=== PATIENT | female | born 1950 | race Caucasian/White ===

== ENCOUNTER 2019-03-17 09:31 | Emergency (ER) | payer OTHER, MEDICARE ==
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
[2019-03-17 10:00] LABS: CHLORIDE,CL 108 mEq/L (98-106); SODIUM,NA 144 mEq/L (136-145)
[2019-03-17] MEDS: fentaNYL 100 MCG/2 ML SDV IVPUSH PRN (10:12)
== END 2019-03-17 11:55 | disposition home or self-care (01) ==
LOC: CC.ED 09:31
DX: S40.022A Contusion of left upper arm, initial encounter (principal); S70.11XA Contusion of right thigh, initial encounter; S70.12XA Contusion of left thigh, initial encounter; M25.512 Pain in left shoulder; M25.531 Pain in right wrist; Z79.899 Other long term (current) drug therapy; E78.00 Pure hypercholesterolemia, unspecified; E03.9 Hypothyroidism, unspecified; V48.5XXA Car driver injured in noncollision transport accident in traffic accident, initial encounter
CPT/HCPCS: 36415; 71045; 72170; 73030-LT; 73110-RT; 73560-RT; 80053; 82150; 85025; 85610; 96374; 99284-25; J3010